=== PATIENT | female | born 1955 | race Caucasian/White ===

== ENCOUNTER 2023-09-12 11:09 | Outpatient (CLI) | payer OTHER | END 2023-09-12 19:24 | disposition home or self-care (01) | LOC: SCA 11:09 | PROVIDERS: ATTEND Internal Medicine | DX: J44.9 Chronic obstructive pulmonary disease, unspecified (principal); R91.1 Solitary pulmonary nodule; I10 Essential (primary) hypertension; G47.33 Obstructive sleep apnea (adult) (pediatric) | CPT/HCPCS: 36600; 82803 ==